=== PATIENT | female | born 2000 | race Hispanic/Latino ===

== ENCOUNTER → 2021-10-23 11:09 | Outpatient (CLI) | payer BC, SELFPAY ==
[2021-10-23 13:01] LABS: Hematocrit 38.8 % (37-47); Hemoglobin 13.3 g/dL (12.0-15.0); Mean Corp Hgb Conc 34.3 g/dL (32-36); Mean Corpuscular Hgb 31.4 pg (27.0-32.0); Mean Corpuscular Volume 91.5 fL (81-99); Mean Platelet Vol. 10.5 fl (6.2-12.0); Platelet Count 267 K/mm3 (150-450); RBC Distribution Width CV 12.2 % (11.6-14.6); RBC Distribution Width SD 40.7 fl (35.1-43.9); Red Blood Count 4.24 M/mm3 (4.2-5.4); White Blood Count 5.7 K/mm3 (4.4-11.0)
[2021-10-23 13:14] LABS: hCG Titer Quant., Serum < 1 mIU/mL (1-3)
[2021-10-23 13:23] LABS: Follicle Stimulating Hormone < 0.2 mIU/mL; Luteinizing Hormone < 0.2 mIU/mL; Prolactin 9.2 ng/mL; T4 Free Direct 1.15 ng/dL (0.76-1.46); Thyroid Stim Hormone (TSH) 0.58 uIU/mL (0.358-3.74)
[2021-10-25 11:08] LABS: Chlamydia By Nucleic Acid AMP Negative (Negative); Gonococcus By Nucleic Acid AMP Negative (Negative)
[2021-10-25 11:58] LABS: Testosterone Free 2.9 pg/mL (0.0-4.2)
== END ==
PROVIDERS: Visit Provider Obstetrics & Gynecology
DX: Z11.3 Encounter for screening for infections with a predominantly sexual mode of transmission (principal); N93.9 Abnormal uterine and vaginal bleeding, unspecified
CPT/HCPCS: 36415; 83001; 83002; 84146; 84402; 84439; 84443; 84702; 85027; 87491; 87591

== ENCOUNTER 2021-12-20 00:09 | Emergency (ER) | payer BC, SELFPAY ==
[2021-12-20 00:11] VITALS: BP 118/86; PULSE 57; RESP 18; TEMP 36.3; O2SAT 98; BMI 36.6
--- NOTE | 2021-12-20 00:59 | EX.ED.DYSGE1 ---
HPI History of Present Illness Chief Complaint: Substance Abuse Informant: patient and EMS Narrative Narrative: 21-year-old female states that she has been clean from opiates for at least 2 years. She states that tonight she snorted heroin and because she was dozing off her significant other administered Narcan and called the squad. She states that she is very cold at the current time. She states that she had been doing pills (Percocet) up until about 2 years ago. She states there is nothing in particular that made her use tonight. She states that she does see a counselor. [facility] Medical History (Updated 12/20/21 @ 01:[address] Yann Pepe DO) Opiate addiction Home Medications alprazolam 1 mg PO DAILY 12/20/21 [History Last Taken Unknown] fluoxetine 10 mg PO DAILY 12/20/21 [History Last Taken Unknown] Allergy/AdvReac Type Severity Reaction Status Date / Time No Known Allergies Allergy Verified 12/20/21 00:14 Social History (Updated 12/20/21 @ 01:[address] Yann Pepe DO) Smoking Status: Current every day smoker tobacco type: e-cigarettes substance use type: heroin and opiates ROS ROS ED Constitutional Constitutional ED: Reports chills; Denies fever(s) or weight loss Eyes Eyes: Denies change in vision or diplopia ENT ENT ED: Denies ear pain, rhinorrhea or sore throat Cardiovascular Cardiovascular: Denies chest pain, orthopnea, palpitations or racing heartbeat Respiratory/Chest Respiratory/Chest: Denies cough, dyspnea or orthopnea Gastrointestinal Gastrointestinal: Reports nausea and vomiting; Denies abdominal pain or diarrhea Genitourinary Genitourinary ED: Denies dysuria, hematuria or urinary frequency Musculoskeletal Musculoskeletal: Denies arthralgias or myalgias Integumentary Denies abscess or rash Neurologic Neurologic: Reports headache(s); Denies weakness Psychiatric Psychiatric: Denies anxiety, depression, suicidal ideation or suicidal thoughts Endocrine Endocrinology: Denies polydipsia, polyphagia or polyuria Allergic/Immunologic Allergic/Immunologic ED: Denies mouth swelling, tongue swelling or urticaria EXAM Physical Exam Const Vital Signs: 12/20/21 00:11 Temperature 97.4 F L Temperature Source Temporal Pulse Rate 57 L Respiratory Rate 18 Blood Pressure 118/86 H Blood Pressure Mean 96 Pulse Ox 98 Oxygen Delivery Method Room Air Positive well nourished, well developed and obese General Appearance ED: well developed Nutritional Appearance: obese HEENT Reports normocephalic, head/scalp atraumatic, TM's clear and moist mucous membranes Negative for trauma Tympanic Membrane ED: Yes TM's clear Eyes PERRL and EOMs intact bilaterally Neck no lymphadenopathy, supple and no JVD Resp normal respiratory effort and clear to auscultation bilaterally Cardio regular rate, regular rhythm and no murmurs GI normal to inspection, nondistended, normoactive bowel sounds and non-tender Palpation: soft Back/Spine no CVA tenderness and normal ROM Extremity normal to inspection General Extremety ED: Negative for edema General Extremity: Negative for edema Neuro oriented x3 and CN's II-XII intact bilaterally Sensorium / Orientation: alert Motor Exam: strength 5/5 throughout Psych mental status grossly normal Mood & Affect: Negative for depressed or tearful Skin no rashes or lesions noted and no wounds MDM MDM MDM Narrative Medical decision making narrative: Patient will be allowed to rest here. When she is feeling better I believe the patient can be discharged home. I can refer her to [facility]. She needs to visit with her counselor. Discharge Plan Triage Chief Complaint: Substance Abuse ED Provider: Yann Pepe Dx/Rx/DC Orders Clinical Impression: Heroin use Instructions: Heroin Addiction Prescriptions: No Action fluoxetine 40 mg capsule 10 mg PO DAILY RF: 0 alprazolam 1 mg tablet 1 mg PO DAILY RF: 0 Primary Care Provider: Care Physician,No Primary Referrals: Care Physician,No Primary [Primary Care Provider] - [facility] [STAFF PHYSICIAN] - As soon as possible Disposition Disposition: Home, Self Care
[2021-12-20 01:10] VITALS: PULSE 69; RESP 15; O2SAT 97
== END 2021-12-20 01:11 | disposition home or self-care (01) ==
PROVIDERS: Emergency Provider Emergency Medicine; Visit Provider Emergency Medicine
DX: F11.90 Opioid use, unspecified, uncomplicated (principal); F17.290 Nicotine dependence, other tobacco product, uncomplicated; E66.9 Obesity, unspecified; Z79.899 Other long term (current) drug therapy
CPT/HCPCS: 99284